=== PATIENT | female | born 1945 | race Caucasian/White ===

== ENCOUNTER 2025-03-27 18:35 | Outpatient (REF) | payer BC, SELFPAY ==
[2025-03-27 21:24] LABS: Cholesterol 242 mg/dL (<200); HDL Cholesterol 62 mg/dL (>40)
[2025-03-27 21:45] LABS: Hemoglobin A1C 5.0 % (<5.7)
== END 2025-03-27 18:36 | disposition home or self-care (01) ==
LOC: NCHCN 18:35
PROVIDERS: Visit Provider Physician Assistant
DX: E78.5 Hyperlipidemia, unspecified (principal); R73.9 Hyperglycemia, unspecified
CPT/HCPCS: 80061; 83036